=== PATIENT | male | born 1955 | race Caucasian/White ===

== ENCOUNTER → 2020-05-30 | Outpatient (REF) | payer OTHER | LOC: M LAB REF 08:34 | PROVIDERS: ATTEND Otolaryngology | DX: D23.20 Other benign neoplasm of skin of unspecified ear and external auricular canal (principal) ==

== ENCOUNTER → 2020-07-04 | Outpatient (REF) | payer MEDICARE, BC, OTHER | LOC: M LAB REF 12:40 | PROVIDERS: ATTEND Otolaryngology | DX: D23.20 Other benign neoplasm of skin of unspecified ear and external auricular canal (principal) ==